=== PATIENT | male | born 1995 | race African-American/Black ===

== ENCOUNTER 2016-08-21 08:46 | Emergency (ER) | payer MEDICAID, OTHER ==
[~2016-08-21] VITALS: Ht 180.3 cm; Wt 80.0 kg
[2016-08-21] MEDS ORDERED: ALBUTEROL (0.083%) 2.5MG/3ML NEB HHN STA (09:13)
[2016-08-21] MEDS ORDERED: IPRATROPIUM BROMIDE (0.02%) 0.5MG/2.5ML NEB HHN STA (09:13)
[2016-08-21] MEDS ORDERED: IBUPROFEN 800MG TABLET PO ONE (09:30)
[2016-08-21 11:03] VITALS: BP 124/68
== END 2016-08-21 11:20 | disposition home or self-care (01) ==
LOC: ER 09:09
DX: J06.9 Acute upper respiratory infection, unspecified (principal); F17.210 Nicotine dependence, cigarettes, uncomplicated; Z87.01 Personal history of pneumonia (recurrent)
CPT/HCPCS: 71010; 99283; J7611

== ENCOUNTER 2017-02-19 17:57 | Emergency (ER) | payer MEDICAID ==
[~2017-02-19] VITALS: Ht 180.3 cm; Wt 77.0 kg
[2017-02-19 22:32] LABS: BASOPHILS % 0.5 % (0.0-2.0); EOSINOPHILS % 0.9 % (0.0-5.0); HEMATOCRIT. 44.1 % (42.0-52.0); LYMPHOCYTES % 32.6 % (20.0-50.0); MEAN CORPUSCULAR HEMOGLOBIN 32.4 pg (28.0-32.0); MEAN CORPUSCULAR VOLUME 95.1 fL (80.0-94.0); MEAN PLATELET VOLUME 9.4 fl (7.4-10.4); MONOCYTES % 9.7 % (2.0-8.0); NEUTROPHILS % 56.3 % (40.0-76.0); PLATELET 230 x1000/uL (130-400); RED BLOOD CELL COUNT 4.64 mill/uL (4.7-6.1); RED CELL DISTRIBUTION WIDTH 12.9 % (11.6-14.6)
[2017-02-19] MEDS ORDERED: ALBUTEROL (0.083%) 2.5MG/3ML NEB HHN STA (22:45)
[2017-02-19 22:47] LABS: CARBON DIOXIDE 27 mEq/L (21-32); CHLORIDE 104 mEq/L (98-107)
[2017-02-19 22:48] LABS: TROPONIN I < 0.02 ng/mL (0.00-0.04)
[2017-02-20 01:00] VITALS: BP 120/87
== END 2017-02-20 01:02 | disposition home or self-care (01) ==
LOC: ER 22:14
DX: R06.02 Shortness of breath (principal); R07.9 Chest pain, unspecified; J45.909 Unspecified asthma, uncomplicated
CPT/HCPCS: 36415; 71010; 80053; 83690; 84484; 85025; 93005; 99285; J7611

== ENCOUNTER 2017-05-22 16:13 | Emergency (ER) | payer MEDICAID ==
[~2017-05-22] VITALS: Ht 182.9 cm; Wt 82.0 kg
[2017-05-22 20:35] VITALS: BP 119/74
== END 2017-05-22 20:36 | disposition home or self-care (01) ==
LOC: ER 16:35
DX: J02.0 Streptococcal pharyngitis (principal); F17.200 Nicotine dependence, unspecified, uncomplicated
CPT/HCPCS: 99283

== ENCOUNTER 2017-05-29 15:14 | Emergency (ER) | payer MEDICAID ==
[~2017-05-29] VITALS: Ht 182.9 cm; Wt 80.0 kg
[2017-05-29 15:23] VITALS: BP 118/70
[2017-05-29] MEDS ORDERED: AMOX500T2 PO (15:25)
== END 2017-05-29 17:24 | disposition home or self-care (01) ==
LOC: ER 15:39
DX: B34.8 Other viral infections of unspecified site (principal); J98.8 Other specified respiratory disorders; F17.200 Nicotine dependence, unspecified, uncomplicated
CPT/HCPCS: 99282

== ENCOUNTER 2017-08-03 18:04 | Emergency (ER) | payer MEDICAID ==
[~2017-08-03] VITALS: Ht 182.9 cm; Wt 73.0 kg
[2017-08-04 00:53] VITALS: BP 125/68
== END 2017-08-04 00:55 | disposition home or self-care (01) ==
LOC: ER 08-04 00:55
DX: M25.512 Pain in left shoulder (principal); M54.2 Cervicalgia; F17.210 Nicotine dependence, cigarettes, uncomplicated; F12.90 Cannabis use, unspecified, uncomplicated
CPT/HCPCS: 99281; 99282

== ENCOUNTER 2019-11-21 00:10 | Emergency (ER) | payer MEDICAID ==
[~2019-11-21] VITALS: Ht 175.3 cm; Wt 87.0 kg
[2019-11-21] MEDS ORDERED: LIDOCAINE HCL/EPINEPHRINE 1%-EPI 1:100,000 20 ML VIAL INFIL ONE (01:00)
[2019-11-21] MEDS ORDERED: IBUPROFEN 600MG TABLET PO ONE (01:00)
[2019-11-21] MEDS ORDERED: TETANUS, DIPHTHERIA, PERTUSSIS VAC/PF 0.5ML (>7YR OLD) IM ONE (02:30)
[2019-11-21 02:46] VITALS: BP 122/80
== END 2019-11-21 02:47 | disposition home or self-care (01) ==
LOC: ER 00:21
DX: S51.812A Laceration without foreign body of left forearm, initial encounter (principal); S50.02XA Contusion of left elbow, initial encounter; F12.10 Cannabis abuse, uncomplicated; W25.XXXA Contact with sharp glass, initial encounter; Y93.89 Activity, other specified; Y92.018 Other place in single-family (private) house as the place of occurrence of the external cause
CPT/HCPCS: 12001; 73080; 90471; 90715; 99283; J3490